=== PATIENT | male | born 1995 | race Two or more races ===

== ENCOUNTER 2019-11-06 20:46 | Emergency (ER) | payer SELFPAY ==
[~2019-11-06] VITALS: Ht 162.6 cm; Wt 68.0 kg
[2019-11-06 21:00] VITALS: BP 131/90
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
[2019-11-06] MEDS ORDERED: HYDROcodone/Acetamin 5/325 tab ORAL ONE (22:00)
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
--- NOTE | 2019-11-06 22:10 | NUR ---
ED Nurse Note: Pt placed in splint by tech and instructed on care.
[2019-11-06] MEDS ORDERED: IBUPROFEN600 MG ORAL (22:19)
[2019-11-06 22:30] VITALS: BP 128/85
--- NOTE | 2019-11-06 22:30 | NUR ---
ER DISCHARGE NOTE: Patient is cleared to be discharged per ERMD, pt is aox4, on room air, with stable vital signs. pt was given dc and prescription instructions, pt was able to verbalize understanding, pt id band removed. pt is able to ambulate with steady gait. pt took all belongings.
--- NOTE | 2019-11-07 11:28 | Diagnostic Imaging Report ---
Indication: Right hand pain and trauma Technique: 3 views right hand Comparison: none Findings: No acute fractures. No dislocations. The joint spaces are preserved. Impression: Negative
== END 2019-11-06 23:00 | disposition home or self-care (01) ==
LOC: EMR 22:41
DX: S60.221A Contusion of right hand, initial encounter (principal); V19.9XXA Pedal cyclist (driver) (passenger) injured in unspecified traffic accident, initial encounter
CPT/HCPCS: 29125; 99283